=== PATIENT | female | born 1975 | race Caucasian/White ===

== ENCOUNTER 2020-08-12 10:43 | Outpatient (REF) | payer MEDICARE, MEDICAID, SELFPAY | END 2020-08-12 10:44 | disposition home or self-care (01) | LOC: HO.MDS 10:43 | PROVIDERS: Visit Provider Internal Medicine Medical Oncology | DX: D50.9 Iron deficiency anemia, unspecified (principal) | CPT/HCPCS: 96365; J2916 ==

== ENCOUNTER 2020-08-19 12:29 | Outpatient (REF) | payer MEDICARE, MEDICAID, SELFPAY | END 2020-08-19 12:30 | disposition home or self-care (01) | LOC: HO.MDS 12:29 | PROVIDERS: Visit Provider Internal Medicine Medical Oncology | DX: D50.9 Iron deficiency anemia, unspecified (principal) | CPT/HCPCS: 96365; J2916 ==

== ENCOUNTER 2020-08-26 12:44 | Outpatient (REF) | payer MEDICARE, MEDICAID, SELFPAY | END 2020-08-26 12:45 | disposition home or self-care (01) | LOC: HO.MDS 12:44 | PROVIDERS: Visit Provider Internal Medicine Medical Oncology | DX: D50.9 Iron deficiency anemia, unspecified (principal) | CPT/HCPCS: 96365; J2916 ==

== ENCOUNTER 2020-09-02 12:18 | Outpatient (REF) | payer MEDICARE, MEDICAID, SELFPAY | END 2020-09-02 12:19 | disposition home or self-care (01) | LOC: HO.MDS 12:18 | PROVIDERS: Visit Provider Internal Medicine Medical Oncology | DX: D50.9 Iron deficiency anemia, unspecified (principal) | CPT/HCPCS: 96365; J2916 ==

== ENCOUNTER 2020-09-27 15:40 | Outpatient (REF) | payer MEDICARE, MEDICAID, SELFPAY ==
[2020-09-27 16:25] LABS: Hemoglobin 11.2 g/dl (12.0-16.0); Mean Corpuscular HGB Conc 32.9 g/dl (31.0-35.0); Mean Corpuscular Hemoglobin 27.8 pg (27.0-33.0); Mean Corpuscular Volume 84.4 fL (80-98); Mean Platelet Volume 10.8 fL (9.4-12.3); Platelet Count 307 X10*3/uL (160-400); Red Blood Count 4.03 X10*6/uL (4.20-5.50); Red Cell Distribution Width 16.7 % (11.0-16.0)
[2020-09-27 16:45] LABS: Alanine Aminotransferase 10 U/L (0-31); Albumin Level 4.2 g/dL (3.5-5.0); Alkaline Phosphatase 64 U/L (39-117); Anion Gap 14 (12-20); Aspartate Amino Transferase 14 U/L (5-31); Bilirubin Total 0.4 mg/dL (0.0-1.0); Blood Urea Nitrogen 17 mg/dL (9-16); Carbon Dioxide 20 mmol/L (22-29); Chloride 111 mmol/L (96-108); Estimated Glomerular Filt Rate > 60; Glucose Random 130 mg/dL (60-115); Iron 65 mcg/dL (30-160); Potassium 3.9 mmol/L (3.3-5.1); Sodium 141 mmol/L (135-145); Total Protein 6.7 g/dL (6.5-8.0)
[2020-09-27 16:56] LABS: Percent Iron Saturation 16 % (15-50); Total Iron Binding Capacity 418 mcg/dL (228-428); Unsaturated Iron Binding 353 ug/dL
[2020-09-27 17:17] LABS: Ferritin 11 ng/mL (10-250)
== END 2020-09-27 15:41 | disposition home or self-care (01) ==
LOC: HO.LAB 15:40
PROVIDERS: Visit Provider Internal Medicine Medical Oncology
DX: D50.9 Iron deficiency anemia, unspecified (principal)
CPT/HCPCS: 36415; 80053; 82728; 83540; 85027

== ENCOUNTER 2020-10-14 10:35 | Outpatient (REF) | payer MEDICARE, MEDICAID, SELFPAY | END 2020-10-14 10:36 | disposition home or self-care (01) | LOC: HO.MDS 10:35 | PROVIDERS: Visit Provider Internal Medicine Medical Oncology | DX: D50.9 Iron deficiency anemia, unspecified (principal) | CPT/HCPCS: 96365; J2916 ==

== ENCOUNTER 2020-10-21 12:04 | Outpatient (REF) | payer MEDICARE, MEDICAID, SELFPAY | END 2020-10-21 12:05 | disposition home or self-care (01) | LOC: HO.MDS 12:04 | PROVIDERS: Visit Provider Internal Medicine Medical Oncology | DX: D50.9 Iron deficiency anemia, unspecified (principal) | CPT/HCPCS: 96365; J2916 ==

== ENCOUNTER 2020-10-28 12:41 | Outpatient (REF) | payer MEDICARE, MEDICAID, SELFPAY | END 2020-10-28 12:42 | disposition home or self-care (01) | LOC: HO.MDS 12:41 | PROVIDERS: Visit Provider Internal Medicine Medical Oncology | DX: D50.9 Iron deficiency anemia, unspecified (principal) | CPT/HCPCS: 96365; J2916 ==

== ENCOUNTER 2021-03-23 13:45 | Outpatient (REF) | payer MEDICARE, MEDICAID, SELFPAY | END 2021-03-23 13:46 | disposition home or self-care (01) | LOC: HO.MDS 13:45 | PROVIDERS: Visit Provider Internal Medicine Medical Oncology | DX: D50.9 Iron deficiency anemia, unspecified (principal); F41.9 Anxiety disorder, unspecified | CPT/HCPCS: 96365; 96366; J1756 ==

== ENCOUNTER 2021-03-31 11:05 | Outpatient (REF) | payer MEDICARE, MEDICAID, SELFPAY | END 2021-03-31 11:06 | disposition home or self-care (01) | LOC: HO.MDS 11:05 | PROVIDERS: Visit Provider Internal Medicine Medical Oncology | DX: D50.9 Iron deficiency anemia, unspecified (principal); F41.9 Anxiety disorder, unspecified | CPT/HCPCS: 96365; J1756 ==

== ENCOUNTER 2021-04-07 12:55 | Outpatient (REF) | payer MEDICARE, MEDICAID, SELFPAY | END 2021-04-07 12:56 | disposition home or self-care (01) | LOC: HO.MDS 12:55 | PROVIDERS: Visit Provider Internal Medicine Medical Oncology | DX: D50.9 Iron deficiency anemia, unspecified (principal); F41.9 Anxiety disorder, unspecified | CPT/HCPCS: 96365; 96366; J1756 ==

== ENCOUNTER 2022-08-28 14:44 | Outpatient (REF) | payer MEDICARE, MEDICAID, SELFPAY ==
[2022-08-28 20:39] LABS: Alanine Aminotransferase 42 U/L (0-31); Albumin Level 4.2 g/dL (3.5-5.0); Alkaline Phosphatase 89 U/L (39-117); Aspartate Amino Transferase 59 U/L (5-31); Bilirubin Direct 0.2 mg/dL (0.0-0.5); Bilirubin Total 0.5 mg/dL (0.0-1.0); Total Protein 6.7 g/dL (6.5-8.0)
[2022-08-29 03:25] LABS: Hepatitis A Antibody IgM 0.18 Index (0-0.79); ~Hepatitis A Antibody IgM Nonreactive (Nonreactive)
[2022-08-29 03:26] LABS: HBS Num1 4.13 mIU/mL (0-7.99); HBc Num1 0.29 S/CO (0.00-0.79); HBsAGNum1 0.33 S/CO (0.00-0.99); HIV AB/AG Nonreactive (Nonreactive); HIV Num 1 0.06 S/CO (0.00-0.99); Hepatitis B Core Antibody Nonreactive (Nonreactive); Hepatitis B Surface Antigen Negative (Negative); ~Hepatitis B Surface Antibody NONREACTIVE (Nonreactive)
== END 2022-08-28 14:45 | disposition home or self-care (01) ==
LOC: HO.HHCL 14:44
PROVIDERS: Visit Provider Emergency Medicine
DX: Z11.4 Encounter for screening for human immunodeficiency virus [HIV] (principal); F11.20 Opioid dependence, uncomplicated
CPT/HCPCS: 36415; 80076; 86704; 86706; 86709; 87340; 87389

== ENCOUNTER 2022-08-31 13:35 | Outpatient (REF) | payer MEDICARE, MEDICAID, SELFPAY ==
--- NOTE | ~2022-08-31 | US_ITS ---
EXAMINATION: US ABDOMEN LIMITED CLINICAL INFORMATION: Elevated LFTs. COMPARISON: None available. TECHNIQUE: Real-time imaging of the right upper quadrant abdominal viscera. FINDINGS: PANCREAS: Normal head and body, the tail is obscured by bowel gas. LIVER: The liver contour is normal. There is diffuse increased liver parenchymal echogenicity, consistent with hepatic steatosis. No focal hepatic lesion. There is no intrahepatic biliary duct dilatation seen. GALLBLADDER: Surgically absent. COMMON BILE DUCT: Normal in caliber measuring 0.6-0.8 cm in diameter. RIGHT KIDNEY: 0.9 x 0.7 x 1.0 cm echogenic focus in the medial mid kidney may represent an angiomyolipoma. No hydronephrosis. No renal calculi or focal parenchymal lesions. The kidney measures 12.8 cm in maximum dimension. FREE FLUID: None. US/US abdomen limited IMPRESSION: 1. Hepatic steatosis. 2. Prior cholecystectomy. 3. 1.0 cm echogenic focus in the medial mid right kidney may represent an angiomyolipoma. Follow-up ultrasound in 6 months is recommended for further evaluation.
[2022-08-31 17:08] LABS: MANUAL DIFF FLAG NO
[2022-08-31 17:45] LABS: Basophils Absolute Auto 0.1 X10*3/uL (0.0-0.2); Eosinophils Absolute Auto 0.2 X10*3/uL (0.0-0.4); Eosinophils Percent Auto 2.5 % (0-4); Hematocrit 36.3 % (37.0-47.0); Hemoglobin 12.1 g/dl (12.0-16.0); Imm Gran Abs Auto 0.01 X10*3/uL (0.00-0.03); Imm Gran Pct Auto 0.2 % (0.0-0.4); Lymphocytes Absolute Auto 2.2 X10*3/uL (1.2-4.9); Lymphocytes Percent Auto 36.2 % (20-40); Mean Corpuscular HGB Conc 33.3 g/dl (31.0-35.0); Mean Corpuscular Hemoglobin 30.1 pg (27.0-33.0); Mean Corpuscular Volume 90.3 fL (80.0-98.0); Mean Platelet Volume 9.8 fL (9.4-12.3); Monocytes Absolute Auto 0.6 X10*3/uL (0.1-1.2); Monocytes Percent Auto 10.7 % (2-11); Neutrophils Percent Auto 49.4 % (45-73); Platelet Count 297 X10*3/uL (160-400); Red Blood Count 4.02 X10*6/uL (4.20-5.50); Red Cell Distribution Width 12.3 % (11.0-16.0)
[2022-08-31 18:25] LABS: Iron 80 mcg/dL (30-160); Percent Iron Saturation 27 % (15-50); Total Iron Binding Capacity 292 mcg/dL (228-428); Unsaturated Iron Binding 212 ug/dL
[2022-08-31 18:40] LABS: Ferritin 90 ng/mL (10-250)
== END 2022-08-31 13:36 | disposition home or self-care (01) ==
LOC: HO.US 13:35
PROVIDERS: PCP Student in an Organized Health Care Education/Training Program; Visit Provider Student in an Organized Health Care Education/Training Program
DX: R74.8 Abnormal levels of other serum enzymes (principal)
CPT/HCPCS: 36415; 76705; 82728; 83540; 85025

== ENCOUNTER 2022-11-28 | Outpatient (REF) | payer MEDICARE, MEDICAID, SELFPAY | END 2022-11-28 00:01 | disposition home or self-care (01) | LOC: HO.HHCLNP | PROVIDERS: Visit Provider Pediatrics | DX: R35.0 Frequency of micturition (principal) | CPT/HCPCS: 87086 ==

== ENCOUNTER 2023-04-15 14:15 | Outpatient (REF) | payer MEDICARE, MEDICAID, SELFPAY ==
[2023-04-15 17:28] LABS: MANUAL DIFF FLAG NO
[2023-04-15 17:35] LABS: Basophils Absolute Auto 0.1 X10*3/uL (0.0-0.2); Basophils Percent Auto 0.7 % (0-2); Eosinophils Absolute Auto 0.2 X10*3/uL (0.0-0.4); Eosinophils Percent Auto 2.1 % (0-4); Hematocrit 36.8 % (37.0-47.0); Hemoglobin 12.1 g/dl (12.0-16.0); Imm Gran Abs Auto 0.02 X10*3/uL (0.00-0.03); Imm Gran Pct Auto 0.3 % (0.0-0.4); Lymphocytes Absolute Auto 2.1 X10*3/uL (1.2-4.9); Lymphocytes Percent Auto 27.5 % (20-40); Mean Corpuscular HGB Conc 32.9 g/dl (31.0-35.0); Mean Corpuscular Hemoglobin 29.6 pg (27.0-33.0); Mean Platelet Volume 10.1 fL (9.4-12.3); Monocytes Absolute Auto 0.7 X10*3/uL (0.1-1.2); Monocytes Percent Auto 9.3 % (2-11); Neutrophils Absolute Auto 4.6 x10*3/uL (2.0-8.3); Neutrophils Percent Auto 60.1 % (45-73); Platelet Count 276 X10*3/uL (160-400); Red Blood Count 4.09 X10*6/uL (4.20-5.50); White Blood Count 7.6 X10*3/uL (4.8-10.8)
[2023-04-15 17:53] LABS: Alanine Aminotransferase 28 U/L (0-31); Albumin Level 4.3 g/dL (3.5-5.0); Alkaline Phosphatase 98 U/L (39-117); Aspartate Amino Transferase 35 U/L (5-31); Bilirubin Direct 0.1 mg/dL (0.0-0.5); Bilirubin Total 0.3 mg/dL (0.0-1.0); Cholesterol 211 mg/dL (<200); HDL Cholesterol 56 mg/dL (>40); Iron 86 mcg/dL (30-160); LDL Cholesterol Calculated 129 mg/dL (<100); Percent Iron Saturation 27 % (15-50); Total Iron Binding Capacity 318 mcg/dL (228-428); Triglycerides 134 mg/dL (<150); Unsaturated Iron Binding 232 ug/dL
[2023-04-15 18:11] LABS: Ferritin 32 ng/mL (10-250)
[2023-04-19 10:43] LABS: Rubella IgG Antibody 1.77 Index
== END 2023-04-15 14:16 | disposition home or self-care (01) ==
LOC: HO.CHCLDS 14:15
PROVIDERS: Visit Provider Student in an Organized Health Care Education/Training Program
DX: Z01.84 Encounter for antibody response examination (principal); K76.0 Fatty (change of) liver, not elsewhere classified
CPT/HCPCS: 36415; 80061; 80076; 82728; 83540; 85025; 86735; 86762; 86765

== ENCOUNTER 2023-10-24 14:08 | Outpatient (REF) | payer MEDICARE, MEDICAID, SELFPAY ==
[2023-10-24 17:05] LABS: TSH reflex Free T4 1.21 uIU/mL (0.32-4.0)
[2023-10-28 15:23] LABS: Follicle Stimulating Hormone 6.8 mIU/mL
[2023-10-29 13:43] LABS: HPV mRNA E6/E7 Not Detected (Not Detected)
[2023-11-02 03:08] LABS: Estradiol Ultra Sensitive 46 pg/mL
== END 2023-10-24 14:09 | disposition home or self-care (01) ==
LOC: HO.HHCL 14:08
PROVIDERS: Visit Provider Advanced Practice Midwife
DX: N92.6 Irregular menstruation, unspecified (principal); Z12.4 Encounter for screening for malignant neoplasm of cervix
CPT/HCPCS: 36415; 82670; 83001; 84443; 87624; 88175

== ENCOUNTER 2023-11-07 13:55 | Outpatient (REF) | payer MEDICARE, MEDICAID, SELFPAY ==
--- NOTE | ~2023-11-07 | US_ITS ---
EXAMINATION: US PELVIS CLINICAL INFORMATION: Abnormal uterine bleeding COMPARISON: None available. TECHNIQUE: Ultrasound of the pelvis is performed using both transabdominal and transvaginal transducers along with Doppler. Transvaginal imaging is performed due to inadequate visualization transabdominally. FINDINGS: Uterus: The uterus is anteverted and measures 8.2 x 4.1 x 4.9 cm. The estimated cervical length is approximately 2.2 cm. There is some fluid in the cervical canal The double wall endometrial thickness is 9 mm. The uterus is smooth in contour and has normal myometrial echogenicity. No focal abnormality in the myometrium. Adnexa: Both ovaries are visualized. There is normal color flow to the adnexa. There is no ovarian torsion. No other solid pelvic mass. Small amount of nonspecific free pelvic fluid Right ovary measures 2.6 x 1.6 x 1.8 cm. The estimated right ovarian findings approximately 4 mL. There is an approximately 1.9 cm septated cyst which does not require any specific imaging follow-up Left ovary measures 3.6 x 2.4 x 2.8 cm. The estimated left ovarian volume is approximately 13 mL. There is an approximately 2.2 cm hypoechoic area within the ovary. Mild posterior enhancement. No internal color signal US/US pelvic and transvaginal IMPRESSION: Small amount of fluid in the lower cervical canal. No focal endometrial mass. No mass within the myometrium. There is an approximately 2.2 cm hypoechoic area within the left ovary. This could be related to recent ovulation or previous hemorrhagic cyst. Recommend a follow-up ultrasound after 2 menstrual cycles including transvaginal scanning Electronically signed by: Julián Rosario MD 11/07/2023 06:31 PM EDT
== END 2023-11-07 13:56 | disposition home or self-care (01) ==
LOC: HO.US 13:55
PROVIDERS: PCP Student in an Organized Health Care Education/Training Program; Visit Provider Advanced Practice Midwife
DX: N92.6 Irregular menstruation, unspecified (principal)
CPT/HCPCS: 76830; 76856

== ENCOUNTER 2024-01-09 16:03 | Outpatient (REF) | payer MEDICARE, MEDICAID, SELFPAY ==
--- NOTE | ~2024-01-09 | MM_ITS ---
EXAMINATION: MM SCREENING DIGITAL BREAST TOMOSYNTHESIS, BILATERAL CLINICAL INFORMATION: Screening. Asymptomatic. COMPARISON: Mammography: Baseline. TECHNIQUE: Digital breast mammography with tomosynthesis is performed in both the craniocaudal and mediolateral oblique views along with computer-aided detection (CAD). FINDINGS: There are scattered areas of fibroglandular density (ACR BI-RADS breast composition Category b). There are no significant masses, abnormal calcifications, or other abnormalities. MM/MM tomosynthesis screening BI IMPRESSION: No mammographic evidence of malignancy. ASSESSMENT: BI-RADS BI-RADS 1 - Negative RECOMMENDATION: Routine annual mammography screening. 1 year F/U This examination should not preclude the clinical evaluation of a suspicious palpable abnormality. This patient's information was entered into a reminder system with a target due date for their next mammogram. Electronically signed by: Andria Alford DO 01/20/2024 09:44 AM [facility]
== END 2024-01-09 16:04 | disposition home or self-care (01) ==
LOC: HO.MAMMO 16:03
PROVIDERS: PCP Student in an Organized Health Care Education/Training Program; Referring Provider Advanced Practice Midwife; Visit Provider Student in an Organized Health Care Education/Training Program
DX: Z12.31 Encounter for screening mammogram for malignant neoplasm of breast (principal)
CPT/HCPCS: 77063; 77067

== ENCOUNTER → 2024-01-09 16:30 | Outpatient (BNV) | payer MEDICARE, MEDICAID, SELFPAY | PROVIDERS: PCP Student in an Organized Health Care Education/Training Program; Referring Provider Advanced Practice Midwife; Visit Provider Internal Medicine | DX: Z12.31 Encounter for screening mammogram for malignant neoplasm of breast (principal) | CPT/HCPCS: 77063; 77067 ==

== ENCOUNTER → 2024-11-20 10:59 | Outpatient (BNV) | payer MEDICARE, MEDICAID, SELFPAY | PROVIDERS: PCP Student in an Organized Health Care Education/Training Program; Referring Provider Student in an Organized Health Care Education/Training Program; Visit Provider Internal Medicine Medical Oncology | DX: D50.9 Iron deficiency anemia, unspecified (principal) | CPT/HCPCS: 99203 ==

== ENCOUNTER 2024-12-14 12:45 | Outpatient (RCR) | payer MEDICARE, MEDICAID, SELFPAY ==
[2024-12-07 12:16] VITALS: BP 142/70; PULSE 81; RESP 18; TEMP 36; O2SAT 98
[2024-12-14 12:44] VITALS: BP 129/65; PULSE 82; RESP 16; TEMP 36.6; O2SAT 98
== END 2024-12-14 14:28 | disposition home or self-care (01) ==
LOC: HO.INF 12:45
PROVIDERS: Visit Provider Internal Medicine Medical Oncology
DX: D50.9 Iron deficiency anemia, unspecified (principal)
CPT/HCPCS: 96365; J1439